=== PATIENT | female | born 1990 | race Caucasian/White ===

== ENCOUNTER 2017-03-21 22:23 | Inpatient (IN) | payer OTHER ==
[2017-03-21] MEDS ORDERED: Vecuronium 10 MG VIAL ONE (22:41)
[2017-03-21] MEDS ORDERED: FOSPHENYTOIN SODIUM IVPB SCH ×2 (22:45→23:00)
[2017-03-21] MEDS ORDERED: SODIUM CHLORIDE 0.9% IVPB SCH ×2 (22:45→23:00)
[2017-03-21] MEDS ORDERED: Fentanyl 20 MCG/ML 250 ML ONE (22:47)
[2017-03-21 22:48] LABS: #Basophils 0.1 thou/uL (0.0-0.2); #Eosinphils 0.2 thou/uL (0.0-0.7); #Lymphocytes 1.9 thou/uL (1.20-3.40); #Monocytes 0.5 thou/uL (0.11-0.59); #Neutrophils 2.3 thou/uL (1.40-6.50); %Basophils 1.3 % (0.0-1.0); %Eosinophils 3.7 % (0.0-10.0); %Lymphocytes 37.7 % (21.0-51.0); %Monocytes 9.7 % (0.0-10.0); Hematocrit 35.7 % (36.0-47.0); Mean Platelet Volume 6.8 fL (7.4-10.4); White Blood Cell (WBC) Count 4.9 thou/uL (4.8-10.8)
[2017-03-21 22:55] LABS: PTT 28.6 SEC (22.9-36.1); Prothrombin Time 12.6 SEC (12.0-14.7)
[2017-03-21 23:02] LABS: Lactic Acid - Sepsis 1.5 mmol/L (0.5-2.2)
[2017-03-21 23:08] LABS: ALT (SGPT) 11 U/L (8-55); AST (SGOT) 20 U/L (5-34); Alkaline Phosphatase 54 U/L (40-150); Anion Gap 14 mmol/L (10-20); BUN (Urea Nitrogen) 13 mg/dL (7.0-18.7); Bilirubin, Total 0.4 mg/dL (0.2-1.2); CK (CPK) 151 U/L (29-168); Calc. Creatinine Clearance 0 mL/min (70-130); Calcium 8.9 mg/dL (7.8-10.44); Carbon Dioxide 22 mmol/L (22-29); Chloride 105 mmol/L (98-107); Estimated GFR-MDRD 86; Globulin 3.5 g/dL (2.4-3.5); Lipase 31 U/L (8-78); Protein, Total 7.3 g/dL (6.0-8.3)
[2017-03-21] MEDS ORDERED: Lorazepam 2 MG/ML VIAL ONE (23:08)
[2017-03-21 23:15] LABS: Bilirubin Negative (Negative); Blood, Urine Negative (Negative); Glucose, Urine (Dipstick) Negative (Negative); Ketone, Urine Trace mg/dL (Negative); Nitrite Negative (Negative); Protein, Urine (Dipstick) Negative (Neg-Trace)
[2017-03-21 23:16] LABS: Troponin I Less than 0.010 ng/mL (< 0.028)
[2017-03-21 23:19] LABS: Oxyhemoglobin 96.9 % (94.0-97.0); Sodium 140 mmol/L (135-148)
[2017-03-21 23:24] LABS: Acetaminophen Less than 6.0 mcg/mL (10.0-30.0); Salicylate Less than 8.0 mg/dL (15.0-30.0)
[2017-03-21 23:25] LABS: Amphetamine Not Detected (NotDetected); Methadone Not Detected (NotDetected); Methamphetamine Not Detected (NotDetected)
[2017-03-21 23:28] LABS: Modified Allen's Test POSITIVE; Vent YES
[2017-03-21 23:29] LABS: Mechanical Tidal Volume 400 ml; Mode VC
--- NOTE | 2017-03-21 23:34 | CT ---
CT BRAIN NONCONTRAST: DATE: 03-21-17 TIME: 11:06 p.m. HISTORY: 26-year-old female with altered mental status, loss of consciousness, status post CPR. FINDINGS: There is no midline shift or any other mass effect. There is no evidence of acute intracranial hemor rhage, large cortical infarct, obstructive hydrocephalus, or extraaxial fluid collection. The calvar ium is intact. Symmetrical calcifications involving globi pallida of the bilateral basal ganglia, are again noted. Again noted is the prosthetic left globe. There is no interval change overall compared to 03-23-15. IMPRESSION: 1. No acute intracranial findings. 2. Prosthetic left globe. 3. Globus pallidus basal ganglia calcifications. marek POS: JADEN
--- NOTE | 2017-03-21 23:52 | RAD ---
RADIOGRAPH CHEST 1 VIEW: Date: 03-21-17 Time: 10:55 p.m. HISTORY: 26-year-old female status cardiac arrest. Status post cardiopulmonary resuscitation. COMPARISON: 03-25-15 FINDINGS: There is an endotracheal tube with distal tip overlying the mid thoracic trachea and NG tube coursing through the expected location of the stomach, very similar to the findings on the study performed tw o years ago. Cardiomediastinal silhouette is within normal limits. This is a supine image, which woul d be insensitive for pneumothorax detection. No grossly displaced rib fracture identified. The right lung is clear. Faint, minimal small ill-defined densities in the left mid and lower lung zones, are t he only interval change since the prior study. These are nonspecific. IMPRESSION: 1. Status post intubation with endotracheal tube and nasogastric tube placement. 2. Minimal pulmonary densities in the left lung. 3. The rest of the lungs are clear. DAVID POS: JADEN
[2017-03-22] MEDS ORDERED: DISCONTINUE PREVIOUS NARCOTIC PAIN MEDICATIONS AND BENZODIAZEPINES FS SCH (00:42)
[2017-03-22] MEDS ORDERED: Propofol 1,000 MG/100 ML VIAL IV PRN (00:42)
[2017-03-22] MEDS ORDERED: Fentanyl 20 MCG/ML 250 ML IVPB SCH (00:42)
[2017-03-22] MEDS ORDERED: D5 1/2 NS w/20 mEq KCL 1,000 ML IV SCH (00:45)
[2017-03-22] MEDS ORDERED: CCU Electrolyte Replacement 1 EACH FS SCH (00:49)
[2017-03-22] MEDS ORDERED: Acetaminophen 650 MG Suppository PR PRN (00:49)
[2017-03-22] MEDS ORDERED: Sedation Protocol FS SCH (00:49)
[2017-03-22] MEDS ORDERED: Ondansetron HCl/PF 4 MG/2 ML Vial IVP PRN (00:49)
[2017-03-22] MEDS ORDERED: Potassium Phosphate 9 MMOL in Sodium Chloride 0.9% 100 ML IVPB PRN (01:06)
[2017-03-22] MEDS ORDERED: Potassium Chloride 40 MEQ in Premix Bag 1 BAG IVPB PRN (01:06)
[2017-03-22] MEDS ORDERED: Potassium Chloride 40 MEQ in Sodium Chloride 0.9% 250 ML 250 ML IVPB PRN (01:06)
[2017-03-22] MEDS ORDERED: Potassium Chloride 20 MEQ TAB PO PRN (01:06)
[2017-03-22] MEDS ORDERED: Magnesium 2 GM/NS 0.9% 100 ML 2 GM in Premix Bag 1 BAG IVPB PRN (01:06)
[2017-03-22] MEDS ORDERED: Potassium Phosphate 12 MMOL in Sodium Chloride 0.9% 250 ML 250 ML IV PRN (01:06)
[2017-03-22] MEDS ORDERED: CCU ELECTROLYTE REPLACEMENT PROTOCOL FS PRN (01:06)
[2017-03-22] MEDS ORDERED: Magnesium Oxide 400 MG TAB PO PRN ×2 (01:06)
[2017-03-22] MEDS ORDERED: Potassium Phosphate 15 MMOL in Sodium Chloride 0.9% 250 ML 250 ML IV PRN (01:06)
[2017-03-22] MEDS: Sodium Chloride 0.9% 1,000 ML IV SCH ×3 (01:29→21:34)
[2017-03-22] MEDS ORDERED: SODIUM CHLORIDE 0.9% IVPB SCH ×3 (01:30→21:00)
[2017-03-22] MEDS ORDERED: HYDROCORTISONE SOD SUCC IVPB SCH ×3 (01:30→21:00)
[2017-03-22 02:03] LABS: Magnesium 1.7 mg/dL (1.6-2.6)
[2017-03-22 02:09] LABS: Troponin I Less than 0.010 ng/mL (< 0.028)
[2017-03-22 05:18] LABS: #Eosinphils 0.1 thou/uL (0.0-0.7); #Lymphocytes 0.8 thou/uL (1.20-3.40); #Monocytes 0.2 thou/uL (0.11-0.59); #Neutrophils 4.8 thou/uL (1.40-6.50); %Basophils 0.5 % (0.0-1.0); %Eosinophils 1.1 % (0.0-10.0); %Lymphocytes 13.2 % (21.0-51.0); %Monocytes 3.1 % (0.0-10.0); Hematocrit 33.5 % (36.0-47.0); Mean Platelet Volume 6.9 fL (7.4-10.4); Red Blood Cell (RBC) Count 3.89 mill/uL (4.20-5.40); White Blood Cell (WBC) Count 5.9 thou/uL (4.8-10.8)
[2017-03-22 05:30] LABS: Anion Gap 10 mmol/L (10-20); BUN (Urea Nitrogen) 10 mg/dL (7.0-18.7); Calc. Creatinine Clearance 108 mL/min (70-130); Calcium 8.3 mg/dL (7.8-10.44); Carbon Dioxide 25 mmol/L (22-29); Chloride 107 mmol/L (98-107); Estimated GFR-MDRD Greater than 90
[2017-03-22 05:36] LABS: Troponin I Less than 0.010 ng/mL (< 0.028)
--- NOTE | 2017-03-22 05:59 | ADD-ER ---
ER ADDENDUM: DATE OF SERVICE: 03/21/2017 Please refer to the patient's electronic medical record for further details of her visit. In summary, the patient presented with altered mental status. She apparently was at home and became progressively obtunded over the course of 30 minutes to 1 hour. This occurred shortly after taking h er daily medications. However, her family does not suspect overdose as they carefully monitor her me dication intake and have counted her medications and have found the appropriate number of medications left in her pillbox. On arrival, the patient was obtunded and unresponsive to painful stimulus. She demonstrated upper ex tremity tonic-clonic movements, concerning for seizure activity. This resolved spontaneously after 3 0 seconds to 1 minute. She continued to breathe spontaneously, and maintained her oxygen saturation without hypoxia at any point. Following several minutes, the patient again began tonic-clonic movements of the upper extremities. This episode was briefer than the initial episode, and resolved just prior to Ativan administration. She had another 1-2 further similar episodes, the decision was made to intubate the patient for airw ay protection. At no point where she hypoxic or did she respond to painful or verbal stimulus at any time. She did remain hemodynamically stable throughout her ER stay. Including during intubation attempt, s he did not become hypoxic at any time. Breath sounds were clear bilaterally before and after intubat ion attempt. Intubation was accomplished with a single attempt without any complication. The patien t did not vomit, there is no evidence of aspiration during their intubation attempt. Findings do not reveal significant underlying cause of her new onset seizure activity. She has not b een recently ill according to her family, and there are no significant metabolic or electrolyte deran gements noted on evaluation. Her CT of the brain is unremarkable. I discussed the case with the [facility] Medicine Resident button and buckle maker, who agreed with plan for admission to the ICU. I also discussed the c ase with Dr. Arauz of the Neurology Service, who recommends ongoing care with Sj. It should be noted, shortly after Ativan administration, the patient was also loaded with fosphenytoin. Sedation was maintained per protocol. The patient is unstable with guarded condition at the time of admission to the ICU. The family was updated with the findings and plans for admission. All other questions were answered.
[2017-03-22] MEDS ORDERED: Fosphenytoin Sodium 100 MG in Sodium Chloride 0.9% 50 ML IVPB SCH (06:00)
[2017-03-22] MEDS ORDERED: Fosphenytoin Sodium 100 MG in Sodium Chloride 0.9% 100 ML IVPB SCH ×2 (06:30→14:00)
--- NOTE | 2017-03-22 07:28 | HP-2 ---
ADMISSION DATE: 03/22/2017 ADMITTING RESIDENT: Emerson Yin DO ADMITTING ATTENDING: Neel Crooks MD HISTORIAN: Mother and boyfriend. CHIEF COMPLAINT: Seizures, status post cardiopulmonary resuscitation. HISTORY OF PRESENT ILLNESS: This is a 26-year-old female who presents to the emergency departm ent after becoming unresponsive at approximately 2140 last night. Her boyfriend states she woke up t o put the child back to sleep and she reported she did not feel well. She had slurred speech, her ey es rolled back pain, and she became unresponsive. He called 911 and they advised that he start chest compressions. He did chest compressions until EMS arrived. EMS found pulse on arrival and per ER r ecords reported she became more alert and started to withdraw from pain. In the emergency department , she was seen by Dr. Sherwood and she started seizing, she was given Ativan and Dilantin and intubat ed. Per her boyfriend and mother, she had been in her normal state of health recently; however, she has a complex medical history including history of pulmonary embolism, history of lupus as well as PT SD and anxiety. Mother states she has multiple psychiatric problems which seem to be worsening latel y. As noted above in the emergency department, she was seen by Dr. Sherwood. Medications received i n the ER include Ativan 2 mg, fosphenytoin 15 mg/kg , 1 liter of normal saline, etomidate and vecuron ium. PAST MEDICAL HISTORY: 1. Systemic lupus erythematosus. 2. Congenital microphthalmia of the left eye. 3. History of pulmonary embolism in 2014. 4. Questionable history of myocarditis in 2014. 5. Hepatitis B in childhood. 6. PTSD. 7. Anxiety. PAST SURGICAL HISTORY: Includes . ALLERGIES: 1. PENICILLIN. 2. NICKEL. 3. TOMATO. HOME MEDICATIONS: Based on list provided by mother and confirmed by the ER nursing staff includes: 1. Hydroxyzine 10 mg 2 tabs q.a.m., 2 tabs midday, and 5 tabs at night. 2. Hydroxychloroquine 300 mg oral once daily. 3. Coreg 3.125 mg p.o. b.i.d. 4. Ranitidine 150 mg p.o. b.i.d. 5. Montelukast 10 mg 2 tabs p.o. b.i.d. 6. Venlafaxine 75 mg p.o. daily. 7. Calcium plus D 600 mg/200 units 1 tab p.o. daily. 8. Vitamin D3 of 2000 units 1 tab p.o. daily. 9. Gabapentin 300 mg p.o. t.i.d. 1 tab in the morning, 2 at noon, and 4 at bedtime. 10. Prazosin 1 mg p.o. daily. 11. Trazodone 50 mg p.o. at bedtime as needed. FAMILY HISTORY: Unknown. The patient is adopted. SOCIAL HISTORY: Patient smokes, mother does not know how much. No alcohol or drug use reported. Anthony renteria has one child. REVIEW OF SYSTEMS: Limited due to patient's altered and now intubated status; however, her boyfriend states she has been in normal state of health and has had no complaints of fevers, chills, runny nos e, stuffed up nose, sore throat, abdominal pain, nausea, vomiting, diarrhea. Mother does note that s he seems to have increased picking behavior recently and that she seems to have more lesions on her s kin per mother. PHYSICAL EXAMINATION: VITAL SIGNS: In the emergency department, blood pressure 111/70, pulse 69, respiratory rate 16, T-ma x 97.5, pulse ox 100% on ventilator. Weight 59.4 kilograms. GENERAL: Patient is well-developed. She is intubated. EYES: Conjunctivae within normal limits. Left eye prosthesis. ENT: Tympanic membranes pearly romano without bulging or erythema. Nasal mucosa within normal limits. Patient is intubated. NECK: Supple, with no lymphadenopathy, thyromegaly, or bruit. CARDIOVASCULAR: Regular rate and rhythm. No murmurs, rubs, or gallops. Radial and pedal pulses are palpable and equal bilaterally. RESPIRATORY: Normal effort. No retractions. Clear to auscultation bilaterally. SKIN: Warm and dry with no cyanosis or lesions. ABDOMEN: Soft. Bowel sounds positive x4. No masses or distention. EXTREMITIES: No clubbing, cyanosis, or edema. MUSCULOSKELETAL: Structure within normal limits. Tone within normal limits. Muscle strength 5/5. Full range of motion. GCS is currently 3 due to patient being intubated and sedated. LABORATORY DATA: 1. CBC: White blood cell count 4.9, hemoglobin 11.8, hematocrit 35.7, platelets 242, MCV 84. 2. CMP: Sodium 138, potassium 3.4, chloride 105, bicarbonate 22, BUN 13, creatinine 0.81, glucose 1 13, calcium 8.9, total protein 7.3, albumin 3.8, AST 20, ALT 11, alkaline phosphatase 54, total bilir ubin 0.4. 3. Urinalysis: Specific gravity 1.026, blood negative, protein negative, leukocyte esterase negativ e, nitrite negative, ketone trace, glucose negative, and negative for red blood cells, white blood ce lls and bacteria. 4. AB.47/30/686. 5. Urine drug screen negative for all drugs of abuse. Serum drug screen negative for salicylate and acetaminophen. 6. Serum test negative. 7. Cardiac enzymes: CK-MB 1.2, troponin I less than 0.010. 8. CK 151. 9. Lactic acid 1.5. 10. Prolactin 7.32. 11. Coags: PT 12.6, INR 0.9, PTT 28.6. 12. EKG shows normal sinus rhythm, no ischemic changes. QT is slightly prolonged. 13. Chest x-ray shows mild pulmonary densities in left lower lobe, otherwise normal. 14. Brain CT shows no acute findings. Prosthetic left globe is present. ASSESSMENT AND PLAN: This is a 26-year-old -female who presents with: 1. Altered mental status likely secondary to new onset seizures. Admit to ICU. MRI has been ordere d. 2. Consult Pulmonology, Neurology consultation in ED, consistent with some involvement of P[place]CEL[place] WAXER. Cont inue Dilantin. Based on patient's psychiatric history, there is also a possible psychiatric componen t, however, organic causes need to be ruled out at this time. 3. Lupus concern for neurologic involvement. Steroids started. Patient's mold yarn supervisor of Dr. Rafat juarez, restart home meds when taking p.o. 4. History of pulmonary embolism in light of patient's history of pulmonary embolism and unresponsiv eness, today we will get a CT angio of the chest. 5. Hypokalemia, CCU electrolyte protocol ordered. 6. Normocytic anemia, mild. We will trend. 7. Post-traumatic stress disorder, outpatient followup. 8. Anxiety. Home medications when taking p.o. 9. Code status: FULL. 10. Diet: N.p.o. 11. Activity: Bed rest. 12. Deep venous thrombosis prophylaxis: Lovenox. 13. Gastrointestinal prophylaxis: Famotidine. DISPOSITION AND LENGTH OF STAY: Two days. Symptomatic medications will be provided. History and physical exam as well as management were discussed with Dr. Crooks.
[2017-03-22] MEDS ORDERED: methylPREDNISolone Sod Succ/PF 125 MG/2 ML VIAL IVP SCH (09:00)
--- NOTE | 2017-03-22 09:14 | CT ---
PRELIMINARY REPORT/[facility]/EMERGENCY AFTER HOURS PROCEDURE: EXAM: CT Angiography Chest With Intravenous Contrast CLINICAL HISTORY: 26 years old, female; Signs and symptoms; Other: Unresposive; Patient HX: Ccu a4; Status post cpr. P mh of pulmonary emboli ; 26 y/o f with presentation of S/P cpr. Ems reports that family initiated cpr , which was stopped when ems arrived. There are concerns for possible od TECHNIQUE: Axial computed tomographic angiography images of the chest with intravenous contrast using pulmonary embolism protocol. MIP reconstructed images were created and reviewed. CONTRAST: 70 mL of ISOVUE 370 administered intravenously. COMPARISON: No relevant prior studies available. FINDINGS: Pulmonary arteries: No pulmonary embolism. Aorta: No acute findings. Lungs: Minimal posterior dependent atelectasis. Pleural space: Normal. No significant effusion. No pneumothorax. Heart: Normal. Bones/joints: No acute fracture. No dislocation. Soft tissues: Normal. Lymph nodes: Normal. Tubes, lines and devices: Enteric tube tip within the gastric body lumen. Endotracheal tube tip in mi dthoracic trachea. IMPRESSION: 1. No pulmonary embolism. 2. No acute thoracic abnormality. 3. Support equipment as above. No acute complications. Thank you for allowing us to participate in the care of your patient. Dictated and Authenticated by: Adonis Lala MD 03/22/2017 3:28 AM Central Time ([place] & [place]) FINAL REPORT CT ANGIOGRAM CHEST: Date: 03/22/17 COMPARISON: 03/24/15. HISTORY: Status post CPR. Post medical history of pulmonary emboli. TECHNIQUE: CT angiogram of chest is performed in the axial plane. Oblique and coronal three-dimensional reformat narciso images are submitted for interpretation. FINDINGS: This report is in agreement with the preliminary report by Shanel. No evidence of pulmonary artery embo lism to the level of the segmental arteries. POS: PPP
[2017-03-22 09:28] LABS: PTT 29.7 SEC (22.9-36.1); Prothrombin Time 13.6 SEC (12.0-14.7)
[2017-03-22] MEDS: Lorazepam 2 MG/ML VIAL SLOW IVP PRN ×2 (10:39→21:42)
[2017-03-22] MEDS ORDERED: Rocuronium Bromide 50 MG/5 ML VIAL ONE (10:44)
[2017-03-22] MEDS ORDERED: Diprivan 20 ML ONE (11:01)
[2017-03-22] MEDS: Enoxaparin Sodium 40 MG/0.4 ML SYRINGE SC SCH (12:18)
[2017-03-22] MEDS: Famotidine/PF 20 mg/2ml Vial SLOW IVP SCH ×2 (12:19→21:42)
--- NOTE | 2017-03-22 16:02 | MRI ---
MRI BRAIN WITH AND WITHOUT IV CONTRAST: Date: 03/22/17 HISTORY: Seizures, mental status changes, history of lupus. FINDINGS: No evidence of infarct, hemorrhage, mass, midline shift, or abnormal extra-axial fluid collections ar e seen. The ventricular size is normal and the basilar cisterns are patent. No abnormal postcontrast enhancement is seen. No restricted diffusion is noted. Blooming artifact in the basal ganglia on the gradient echo sequences is consistent with calcifications noted on the CT scan of previous day. The v isualized paranasal sinuses and mastoid air cells are well aerated. IMPRESSION: Normal exam. POS: [facility]
[2017-03-22] MEDS ORDERED: ISOVUE-370 76%-LOCM 1 ML ONE (16:58)
[2017-03-22] MEDS ORDERED: Gadobenate Dimeglumine 529 MG/1 ML (20ML VIAL) ONE (17:11)
--- NOTE | 2017-03-22 23:29 | CON ---
DATE OF CONSULTATION: 03/22/2017 REASON FOR CONSLTATION: Seizure. HISTORY OF PRESENT ILLNESS: Ms. Pa is a 26-year-old female who has been consulted for evaluatio n of seizure. History is obtained from her father who was present at bedside as well as the patient' s medical chart. Father reports that she has been adopted at 3-1/2 years of age. She has no prior h istory of seizure disorder. She has been diagnosed with lupus about 2 years ago and has been undergo ing treatment. She had not been feeling well on yesterday. She had gotten up to put her child back to sleep and it was reported that she was not feeling well. She had slurred speech and then her eyes rolled back and she passed out. Her boyfriend who was present at that time called 911 and started t he chest compressions as per their advice. EMS had brought the patient to the [facility]. In the emergency room, she was noted to be having seizure-like activity that was witnessed by Edmund Sherwood. At that time, she was given Ativan and Dilantin and intubated for airway protection. C urrently, she is intubated and somewhat agitated. She is not able to follow any commands. PAST MEDICAL HISTORY: Significant for lupus congenital microphthalmia of the left eye, pulmonary emb olism in 2014, myocarditis in 2014, hepatitis B in childhood, PTSD, and anxiety. PAST SURGICAL HISTORY: Significant for . SOCIAL HISTORY: The patient does have a history of smoking. She does not drink any alcohol or use i llicit drugs. She has 1 child. CURRENT MEDICATIONS: Please review MAR. ALLERGIES: Include PENICILLIN, NICKEL and TOMATO. REVIEW OF SYSTEMS: Unable to obtain. FAMILY HISTORY: Unknown as the patient is adopted. PHYSICAL EXAMINATION: VITAL SIGNS: Blood pressure of 100/61, pulse of 64, temperature of 98.4, respirations of 16, O2 sats of 99% on mechanical ventilation. GENERAL: Intubated female, somewhat agitated, in no apparent distress. RESPIRATORY: Clear to auscultation bilaterally. CARDIOVASCULAR: Regular rate and rhythm. NEUROLOGIC: Mental status: The patient is intubated and somewhat agitated. She is not able to foll ow any commands. Cranial nerves: Pupils are 3 mm and reactive. Visual field test, unable to perfor m. She opens her eyes on the right side and unable to move in both direction. She has artificial le ns in the left eye. Motor exam showed normal tone and bulk in both upper and lower extremities. She is spontaneously moving both upper and lower extremities and she is on 2-point restraint. LABORATORY DATA: Labs are reviewed, which included CBC, BMP, urinalysis, urine drug screen, and plas ma alcohol level, which is significant for hemoglobin 10.9, hematocrit 33.5, glucose of 124. Otherwi se, negative. IMAGING STUDIES: MRI brain without contrast was reviewed, which showed no acute intracranial abnorma lity. It was essentially normal. IMPRESSION: 1. Generalized tonic-clonic seizure. 2. Lupus. Ms. Pa is a 26-year-old female with history of lupus, presented with a new onset generalized ton ic clonic seizures. At this time, I would discontinue Dilantin and start her on Keppra 500 mg IV b.i .d. I will obtain EEG for further evaluation, being off the ventilator as per senior it recruiter recommenda tions, continue supportive care. Continue current medical management. Thank you for your consultation.
--- NOTE | 2017-03-23 00:01 | CON ---
DATE OF CONSULTATION: 03/22/2017 HISTORY OF PRESENT ILLNESS: Ms. Pa is a 26-year-old female. History is taken from her father. She is mechanically ventilated. She apparently woke up stating she was not feeling well. She passe d out. He began CPR until the EMS arrived. She had a pulse apparently when they arrived. She apparently had a witnessed seizure according to the mother after an airway was placed. I was then consulted to assist in her management. PAST MEDICAL HISTORY: Remarkable for, 1. Pulmonary embolism. 2. History of lupus. 3. History of anxiety. 4. History of post-traumatic stress disorder. 5. History of congenital microphthalmia of the left eye. 6. History of myocarditis ? 7. History of hepatitis B. 8. History of . ALLERGIES: Reports allergy to PENICILLIN, NICKEL, and TOMATO. MEDICATIONS: Prior to admission she was on hydroxyzine; hydroxychloroquine; Coreg; ranitidine; Singu lair; venlafaxine; calcium; vitamin D3; gabapentin; prazosin which was [facility]; and trazodone. She is apparently a smoker. She is not a drinker. She has one child. Family sees her once a week w hen they come over with the child. FAMILY HISTORY: She is adopted. REVIEW OF SYSTEMS: Only remarkable for her having nightmares and insomnia because of nightmares for about a month and a half prior to seeing her physician and having the prazosin started. She has a ps ychiatrist and her elevator service technician is Dr. Lowry. Review of systems is otherwise not obtainable. PHYSICAL EXAMINATION: VITAL SIGNS: Heart rate 67, blood pressure 96/52, respiratory rate is 10. HEENT: Pupils are equal. Sclerae are anicteric. LUNGS: Clear. HEART: Regular rhythm. S1 and S2 are normal. ABDOMEN: Soft and nontender. EXTREMITIES: Without asymmetry. LABORATORY DATA: White count 5.9, hemoglobin 10.9, platelets 234. Sodium 138, potassium 4.1, chlori de 107, bicarbonate 25, BUN 10, creatinine 0.75, glucose 124. A pH 7.47, pCO2 was 30, pO2 was 686 on 100% last night at 2313 hours. She was sedated and paralyzed for an MRI today. Her MRI of her brain was normal. IMPRESSION: ? seizure. Conversion disorder is always in the differential, in this case such as this was explained to the father. It was in my opinion the correct move to intubate her if there is any uncertainty. Hopefully, we can let her awaken in the morning and extubate her. Critical care time 40 minutes including the time meeting with family.
[2017-03-23] MEDS: Lorazepam 2 MG/ML VIAL SLOW IVP PRN (05:17)
[2017-03-23] MEDS: Sodium Chloride 0.9% 1,000 ML IV SCH ×2 (05:18→12:45)
--- NOTE | 2017-03-23 07:45 | PDOC.FM ---
- Subjective Subjective: Patient remains intubated, with possible extubation today according to RT. Nursing stated that she was agitated last night and propofol was started. Otherwise, there was no concern or overnight event. - Objective MAR Reviewed: Yes Vital Signs & Weight: Vital Signs (12 hours) Temp Pulse Resp BP Pulse Ox 03/23/17 07:12 81 99/53 L 03/23/17 06:00 16 03/23/17 04:00 98.8 F 10 L 03/23/17 03:12 83 03/23/17 02:00 10 L 03/23/17 01:18 75 03/23/17 00:00 98.9 F 10 L 03/22/17 22:00 10 L 03/22/17 21:46 81 03/22/17 20:00 98.8 F 70 10 L 97 Weight Admit Weight 59.421 kg Weight 63.8 kg Most Recent Monitor Data Heart Rate from ECG 84 NIBP 99/54 NIBP BP-Mean 71 Respiration from ECG 18 SpO2 95 I&O: 03/22/17 03/23/17 03/24/17 06:59 06:59 06:59 Intake Total 2606.0 Output Total 650 1055 Balance -650 1551.0 Result Diagrams: 03/22/17 05:03 03/22/17 05:03 <Arnel Salazar M - Last Filed: 03/23/17 11:27> - Objective Vital Signs & Weight: Vital Signs (12 hours) Temp Pulse Resp BP Pulse Ox 03/23/17 09:15 97 03/23/17 08:45 12 03/23/17 08:00 98.5 F 80 12 100 03/23/17 07:12 81 99/53 L 03/23/17 06:00 16 03/23/17 04:00 98.8 F 10 L 03/23/17 03:12 83 03/23/17 02:00 10 L 03/23/17 01:18 75 Weight Admit Weight 59.421 kg Weight 63.8 kg Most Recent Monitor Data Heart Rate from ECG 98 NIBP 119/79 NIBP BP-Mean 94 Respiration from ECG 23 SpO2 100 I&O: 03/22/17 03/23/17 03/24/17 06:59 06:59 06:59 Intake Total 2606.0 Output Total 650 1055 430 Balance -650 1551.0 -430 Result Diagrams: 03/22/17 05:03 03/22/17 05:03 <eTn Lopez R - Last Filed: 03/23/17 12:42> Phys Exam - Physical Examination Constitutional: NAD HEENT: moist MMs Neck: no nodes, supple Respiratory: no wheezing, no rales, no rhonchi, clear to auscultation bilateral Cardiovascular: RRR Gastrointestinal: soft, non-tender, no distention Musculoskeletal: no edema Intubated, no increased tone, right eye reactive to light, spontaneous move but not to command. Skin: no rash <Ly,Arnel M - Last Filed: 03/23/17 11:27> Dx/Plan (1) New onset seizure Code(s): R56.9 - UNSPECIFIED CONVULSIONS Status: Acute Plan: 03/23: Patient remains intubated for airway protection. Per pulm note, she may be extubated today. She is doing well on vent, can become agitated and had propofol yesterday for agitation. Neurology advised that she be started on keppra 500 mg BID. There has no been any witnessed seizure since admission. (2) Systemic lupus erythematosus-related syndrome Code(s): M32.9 - SYSTEMIC LUPUS ERYTHEMATOSUS, UNSPECIFIED Status: Chronic Plan: 03/23: This may play a part in her symptom. However, MRI, brain CT did not suggest cerebritis, stroke or other abnormalities that could have led to her current state or her sudden declined prior to admission. Will continue to await phospholipid lab, but current rheumatological labs are benign at this time. Will restart hydroxychloroquine when she can tolerate PO. (3) Normocytic anemia Code(s): D64.9 - ANEMIA, UNSPECIFIED Status: Acute Plan: 03/23: Normocytic anemia noted on lab. Plan to inform patient nearer to discharge time for follow up as outpatient. Mild anemia. (4) History of pulmonary embolism Code(s): Z86.711 - PERSONAL HISTORY OF PULMONARY EMBOLISM Status: Acute Plan: 03/23: CTA did not find any PE. O2 saturation has been good during this visit. (5) Anxiety and depression Code(s): F41.8 - OTHER SPECIFIED ANXIETY DISORDERS Status: Acute Plan: 03/23: Will restart patient on her venlafaxine once she can tolerate PO. <Ly,Arnel M - Last Filed: 03/23/17 11:27> Attending Addendum - Attending Addendum I personally evaluated the patient and discussed the management with Dr. Salazar. I agree with the History, Examination, Assessment and Plan documented above with any addition or exceptions noted below. Patient with successful extubation earlier today. No seizure activity, but she continues on Keppra therapy. Will need speech consult to ensure no swallowing disturbance. Continue seizure precautions. Her MRI was overall negative for acute issues, less likely infection or lupus involvement responsible. Await EEG and further neuro recs. Continues on pulse dose steroids. <Ten Lopez R - Last Filed: 03/23/17 12:42>
[2017-03-23] MEDS: Famotidine/PF 20 mg/2ml Vial SLOW IVP SCH ×2 (09:59→20:36)
[2017-03-23] MEDS: Hydroxychloroquine Sulfate 200 MG TAB PO SCH ×2 (10:00→10:21)
[2017-03-23] MEDS: Enoxaparin Sodium 40 MG/0.4 ML SYRINGE SC SCH (10:01)
[2017-03-23 10:17] LABS: U1RNP/snRNP IGG Autoabs 0.2 AI (0.0-0.9)
[2017-03-23] MEDS: Venlafaxine HCl XR 75 MG CAP PO SCH (10:22)
[2017-03-23] MEDS ORDERED: Sodium Chloride 0.9% 500 ML IV SCH (11:45)
[2017-03-23] MEDS ORDERED: hydrOXYzine 10 MG TAB PO SCH (12:00)
[2017-03-23] MEDS: Gabapentin 300 MG CAP PO SCH (12:24)
[2017-03-23] MEDS: hydrOXYzine 25 MG/ML VIAL IM SCH (12:25)
--- NOTE | 2017-03-23 12:36 | PRG ---
DATE OF SERVICE: 03/23/2017 Ms. Pa was given a sedation holiday this morning. She will awaken and follow commands. PHYSICAL EXAMINATION: VITAL SIGNS: She is afebrile. Heart rate was 98, blood pressure 105/42, respiratory rate 15. She passed a spontaneous breathing trial. She passed a leak test. LUNGS: Her lungs are clear. CARDIOVASCULAR: Regular rhythm. ABDOMEN: Soft and nontender. EXTREMITIES: Without asymmetry. NEURO: She had no witnessed seizures in the last 24 hours. White count 5.9, hemoglobin 10.9, platelets 334,000. Sodium 130, potassium 4.1, chloride 107, bicarbonate 25, BUN 10, creatinine 0.75. She subsequently has been extubated. She was reevaluate and is complaining of pruritus. I would wonder how much of the pruritus is relate d to her posttraumatic stress disorder, i.e. conversion/somatization. Neurology recommended Davidra. I am concerned that this was an episode of somatization or conversion disorder and not really a true seizure. As I have explained to the father, it is impossible to separate this out clinically at this point and only time will answer this question whether history of bad nightmares for the last month a nd a half with the recent initiation of Prazosin for her nightmares would wonder if this was not anot her manifestation of her posttraumatic stress. In any event, she has been successfully extubated and doing well clinically. She can be transferred over to the stroke unit if she has a good day. CRITICAL CARE TIME: 35 minutes.
--- NOTE | 2017-03-23 16:43 | PRG ---
DATE OF SERVICE: 03/23/2017 SUBJECTIVE: Ms. Pa is a 26-year-old female who presented with the generalized tonic clonic seiz ure. She is now extubated today just 1-2 hours before my examination. Mother was at bedside who pro vided more detailed history. Apparently, the patient has had multiple traumas throughout her life. She has been adopted at 3-1/2 years of age from [place]. She had presented in 2014 with episode of passing out and at that time, she was being seen by Dr. Rowdy Berrios, who felt that the episode may h ave been an underlying condition or medication induced. She was not started on any antiepileptic med ication at that time. Mother reports that she has been undergoing psychiatric management and has bee n prescribed different antidepressant type medications to control her anxiety and depression. She colon d passed out and brought to the [facility] after which she was noted to have 2 episode s of generalized tonic-clonic convulsions. She has not had any episode of seizures since being admit narciso to the ICU. OBJECTIVE: VITAL SIGNS: Blood pressure of 94/80, pulse of 111, temperature of 99.1, respirations of 23 on 2 lit er nasal cannula. GENERAL: Obtunded female in no apparent distress. RESPIRATORY: Clear to auscultation bilaterally. CARDIOVASCULAR: Regular rate and rhythm. NEUROLOGIC: Mental status: The patient is obtunded. She is able to follow some simple commands, bu t primarily is not able to follow through. She is nonverbal and does not communicate. Cranial nerve s: Pupils are 3 mm and reactive on the right side. She has prosthesis on the left side. Face appea rs symmetric. Motor exam showed somewhat increased tone of the both upper extremities as well as a s pastic catch in both upper extremities. Her strength is 5/5 on hand snow fence erector on both sides. Sensory: S he withdraws to pain on both upper and lower extremities. Deep tendon reflexes: Very brisk reflexes in both upper and lower extremities. Babinski: Plantar responses equivocal bilaterally. IMAGING STUDIES: MRI brain without contrast was reviewed, which showed no acute intracranial abnorma lity was essentially normal. Normal MRI brain with and without contrast. IMPRESSION: 1. Generalized tonic-clonic seizure. 2. History of lupus. 3. Depression and anxiety. PLAN: Ms. Pa is a 26-year-old female who presented with the episode of confusion followed by ge neralized tonic clonic convulsions. At this time, I would recommend continuing her on Keppra 500 mg b.i.d. I had a long discussion with the patient's mother and explained that we will continue on the Keppra for now. If she continues to have episodes of seizures, then the Keppra can be maximized to 1 500 mg b.i.d. If she still has seizures, then we can add another antiepileptic medication or refer h er to epileptic monitoring unit for evaluation whether these are nonepileptic or epileptic seizures. She will follow up with my clinic in 4-6 weeks post-discharge. I have advised the mother that she i s to have seizure precautions including no driving, no operating heavy machinery, no climbing ladders or swimming.
--- NOTE | 2017-03-23 16:47 | EKG ---
Test Reason : Blood Pressure : / mmHG Vent. Rate : 087 BPM Atrial Rate : 087 BPM P-R Int : 144 ms QRS Dur : 088 ms QT Int : 366 ms P-R-T Axes : 059 072 060 degrees QTc Int : 440 ms Normal sinus rhythm with sinus arrhythmia Normal ECG Confirmed by LEISA GOMEZ ([id number]) on 03/23/2017 4:46:33 PM Referred By: LORI Confirmed By:LEISA GOMEZ
[2017-03-23] MEDS: Gabapentin 400 MG CAP PO SCH (20:37)
[2017-03-23] MEDS ORDERED: hydrOXYzine 25 MG/ML VIAL IM SCH (21:00)
[2017-03-23] MEDS ORDERED: hydrOXYzine 25 MG TAB PO SCH (21:00)
--- NOTE | 2017-03-24 07:59 | PDOC.FM ---
- Subjective Subjective: According to nursing, no overnight incidence. Patient has been sleeping but can but aroused. She can open eye and move to command, but otherwise sleeps. - Objective MAR Reviewed: Yes Vital Signs & Weight: Vital Signs (12 hours) Temp Pulse Resp Pulse Ox 03/23/17 20:00 98.5 F 83 13 100 Weight Admit Weight 59.421 kg Weight 63.8 kg Most Recent Monitor Data Heart Rate from ECG 68 NIBP 97/59 NIBP BP-Mean 78 Respiration from ECG 14 SpO2 98 I&O: 03/23/17 03/24/17 03/25/17 06:59 06:59 06:59 Intake Total 2606.0 2379 Output Total 1055 3065 Balance 1551.0 -686 Result Diagrams: 03/22/17 05:03 03/22/17 05:03 <Arnel Salazar M - Last Filed: 03/24/17 10:46> - Objective Vital Signs & Weight: Vital Signs (12 hours) Temp Pulse Resp Pulse Ox 03/24/17 12:00 98.4 F 03/24/17 08:00 98.7 F 63 17 97 Weight Admit Weight 59.421 kg Weight 63.8 kg Most Recent Monitor Data Heart Rate from ECG 62 NIBP 118/64 NIBP BP-Mean 81 Respiration from ECG 17 SpO2 98 I&O: 03/23/17 03/24/17 03/25/17 06:59 06:59 06:59 Intake Total 2606.0 2379 200 Output Total 1055 3065 765 Balance 1551.0 -686 -565 Result Diagrams: 03/22/17 05:03 03/22/17 05:03 <Julio Obrien - Last Filed: 03/24/17 12:16> Phys Exam - Physical Examination Constitutional: NAD HEENT: moist MMs Neck: no nodes Respiratory: no wheezing, no rales, no rhonchi, clear to auscultation bilateral Cardiovascular: RRR, no significant murmur, no rub Gastrointestinal: soft, non-tender, no distention, positive bowel sounds Musculoskeletal: no edema <Arnel Salazar M - Last Filed: 03/24/17 10:46> Dx/Plan (1) New onset seizure Code(s): R56.9 - UNSPECIFIED CONVULSIONS Status: Acute Plan: 03/23: Patient remains intubated for airway protection. Per pulm note, she may be extubated today. She is doing well on vent, can become agitated and had propofol yesterday for agitation. Neurology advised that she be started on keppra 500 mg BID. There has no been any witnessed seizure since admission. 03/24: EEG was obtained. Read has not been interpreted yet. At this point, neurology recommend that patient can follow up in outpatient clinic in 6 week and to start keppra 500 BID. From neurology standpoint, patient can be discharge from their service to home whenever she is medically cleared. Their diagnosis is new onset seizure. (2) Systemic lupus erythematosus-related syndrome Code(s): M32.9 - SYSTEMIC LUPUS ERYTHEMATOSUS, UNSPECIFIED Status: Chronic Plan: 03/23: This may play a part in her symptom. However, MRI, brain CT did not suggest cerebritis, stroke or other abnormalities that could have led to her current state or her sudden declined prior to admission. Will continue to await phospholipid lab, but current rheumatological labs are benign at this time. Will restart hydroxychloroquine when she can tolerate PO. 03/24: Double stranded DNA and positive DUC does suggest patient has lupus, phospholipid lab still pending. However, lab does not confirm or deny the cause of patient's AMS. Working diagnosis of new onset seizure at this time. (3) Normocytic anemia Code(s): D64.9 - ANEMIA, UNSPECIFIED Status: Acute Plan: 03/23: Normocytic anemia noted on lab. Plan to inform patient nearer to discharge time for follow up as outpatient. Mild anemia. 03/24: Will continue to monitor while in hospital and advise patient to followup as outpatient. (4) History of pulmonary embolism Code(s): Z86.711 - PERSONAL HISTORY OF PULMONARY EMBOLISM Status: Acute Plan: 03/23: CTA did not find any PE. O2 saturation has been good during this visit. 03/24: No evidence of PE. No further work up at this time, pending changes in clinical picture. (5) Anxiety and depression Code(s): F41.8 - OTHER SPECIFIED ANXIETY DISORDERS Status: Acute Plan: 03/23: Will restart patient on her venlafaxine once she can tolerate PO. 03/24: Will continue with current plan. (6) Prolonged Q-T interval on ECG Code(s): R94.31 - ABNORMAL ELECTROCARDIOGRAM [ECG] [EKG] Status: Acute Plan: 03/24: Patient had mildly prolong qtc interval on initial EKG, has resolved with second ekg . Consider getting new EKG if starting patient on new medication that could prolong qtc. <Arnel Salazar - Last Filed: 03/24/17 10:46> Attending Addendum - Attending Addendum I personally evaluated the patient and discussed the management with Dr. Salazar. I agree with the History, Examination, Assessment and Plan documented above with any addition or exceptions noted below. Patient passed bedside swallow eval. Meds being switched to po. EEG pending. Neuro has signed off. Rehab eval. <Julio Obrien - Last Filed: 03/24/17 12:16>
[2017-03-24] MEDS: Enoxaparin Sodium 40 MG/0.4 ML SYRINGE SC SCH (08:35)
[2017-03-24] MEDS: Sodium Chloride 0.9% 1,000 ML IV SCH ×3 (08:35→20:12)
[2017-03-24] MEDS: Famotidine/PF 20 mg/2ml Vial SLOW IVP SCH (08:36)
[2017-03-24] MEDS: hydrOXYzine 25 MG/ML VIAL IM SCH (08:50)
[2017-03-24] MEDS: Hydroxychloroquine Sulfate 200 MG TAB PO SCH (08:50)
[2017-03-24] MEDS: Gabapentin 300 MG CAP PO SCH ×2 (08:51→12:10)
[2017-03-24] MEDS: Venlafaxine HCl XR 75 MG CAP PO SCH (08:51)
[2017-03-24 12:12] VITALS: BMI 24.9
[2017-03-24 13:14] LABS: DRVVT Ratio 0.9 Ratio (1.2 or Less); DRVVT Screen 29.1 SEC (20-50)
--- NOTE | 2017-03-24 20:10 | PRG ---
DATE OF SERVICE: 03/24/2017 SUBJECTIVE: Ms. Pa has done well overnight. She has had no seizures. She is hemodynamically s table. OBJECTIVE: She is afebrile, heart rate is in the 70s, respiratory rate 16, oximetry is 97, blood pre ssure 123/71. Lungs, heart, and abdomen are unchanged. LABORATORY DATA: There is no new lab. IMPRESSION: Status post? seizure episode. She is being treated with Keppra. Still concerned that a lot of this is a conversion disorder if not all of it. Unfortunately, it is n o easy way to prove that much she is witnessed to be "seizing" with continuous EEG in place. She is stable for transfer out of the critical care. We will sign off.
[2017-03-24] MEDS: levETIRAcetam 500 MG TAB PO SCH (20:11)
[2017-03-24] MEDS: Famotidine 20 MG TAB PO SCH (20:11)
[2017-03-24] MEDS: Montelukast Sodium 10 mg Tablet PO SCH (20:11)
[2017-03-24] MEDS: Carvedilol 3.125 MG TAB PO SCH (20:11)
[2017-03-24] MEDS: hydrOXYzine 25 MG TAB PO SCH (20:50)
[2017-03-24] MEDS: Gabapentin 400 MG CAP PO SCH (20:55)
[2017-03-24] MEDS ORDERED: hydrOXYzine 10 MG TAB PO SCH (21:00)
[2017-03-24] MEDS: Prazosin HCl 1 MG CAP PO SCH (22:55)
[2017-03-24] MEDS: Lorazepam 2 MG/ML VIAL SLOW IVP PRN (22:59)
--- NOTE | 2017-03-24 23:25 | PDOC.EVN ---
Event Note - Event Note Event Note: Called to bedside after patient began having twitching movements that were concerning for seizure like activity. Patient was somnolent on exam and a few twitching episodes of her bilateral upper arms were noted. She had low tone in her arms and legs. She had 2+ DTRs. Overall event could be consistent with seizure like activity and no EEG was available. Gave 1 mg of ativan and patient shortly began to wake up and was following commands. vitals signs were normal including spo2 and RR. Will monitor for longer response to medication. Patients movements and breathing were all consistent with mental status able to protect airway, GCS of 10.
[2017-03-25 00:08] LABS: Beta-2-GPI IgM Autoabs <10 SMU (.); Beta-2-Glycoprotein IgA Abs <10 SAU (.); Beta-2-Glycoprotein IgG Abs <10 SGU (.)
[2017-03-25] MEDS: Sodium Chloride 0.9% 1,000 ML IV SCH ×2 (06:41→16:25)
[2017-03-25 08:57] LABS: Anion Gap 12 mmol/L (10-20); BUN (Urea Nitrogen) 9 mg/dL (7.0-18.7); Calc. Creatinine Clearance 126 mL/min (70-130); Calcium 8.5 mg/dL (7.8-10.44); Carbon Dioxide 21 mmol/L (22-29); Chloride 107 mmol/L (98-107); Estimated GFR-MDRD Greater than 90
[2017-03-25] MEDS ORDERED: hydrOXYzine 10 MG TAB PO SCH ×2 (09:00)
--- NOTE | 2017-03-25 09:36 | PDOC.FM ---
- Subjective Subjective: Overnight, patient had apparent tonic clonic seizure x2, lasting for 10 min, terminated with ativan. Described as a localized siezure involving right arm. She had a postictal govea. She had no memory of event and was not arousable until about 0600 today. - Objective MAR Reviewed: Yes Vital Signs & Weight: Vital Signs (12 hours) Temp Pulse Resp BP BP Pulse Ox 03/25/17 09:11 97 F L 71 18 103/68 99 03/25/17 04:00 97.3 F L 75 16 103/68 99 03/25/17 00:00 97.3 F L 75 16 103/68 99 Weight Admit Weight 59.421 kg Weight 63.8 kg Most Recent Monitor Data Heart Rate from ECG 62 NIBP 118/64 NIBP BP-Mean 81 Respiration from ECG 17 SpO2 98 I&O: 03/24/17 03/25/17 03/26/17 06:59 06:59 06:59 Intake Total 2374 1064 Output Total 7206 5299 [id number] -9903 Result Diagrams: 03/22/17 05:03 03/25/17 08:23 <Arnel Salazar M - Last Filed: 03/25/17 11:33> - Objective Vital Signs & Weight: Vital Signs (12 hours) Temp Pulse Pulse Resp BP Pulse Ox Pulse Ox 03/25/17 16:00 98.4 F 62 18 121/81 98 03/25/17 14:53 84 98 03/25/17 13:00 97.6 F 66 18 110/71 98 03/25/17 09:11 97 F L 71 18 103/68 99 03/25/17 08:00 97 F L 71 18 Weight Admit Weight 59.421 kg Weight 63.8 kg Most Recent Monitor Data Heart Rate from ECG 62 NIBP 118/64 NIBP BP-Mean 81 Respiration from ECG 17 SpO2 98 I&O: 03/24/17 03/25/17 03/26/17 06:59 06:59 06:59 Intake Total 2379 1062 3290 Output Total 3060 3529 0205 [employer] -8881 540 Result Diagrams: 03/22/17 05:03 03/25/17 08:23 <Leydi Baxter Ruthy - Last Filed: 03/25/17 19:20> Phys Exam - Physical Examination Sleepy, difficult to arouse, can follow command, unable to answer questions HEENT: moist MMs Neck: no nodes, supple Respiratory: no wheezing, no rales, no rhonchi, clear to auscultation bilateral Cardiovascular: no significant murmur, no rub Gastrointestinal: soft, non-tender, no distention, positive bowel sounds Musculoskeletal: no edema Neurological: moves all 4 limbs Lymphatic: no nodes Deviation from normal: Sleepy, blunted affect Deviation from normal: Area of hyperpigmentation scattered on skin, secondary to picking <Arnel Salazar M - Last Filed: 03/25/17 11:33> Dx/Plan (1) New onset seizure Code(s): R56.9 - UNSPECIFIED CONVULSIONS Status: Acute Plan: 03/23: Patient remains intubated for airway protection. Per pulm note, she may be extubated today. She is doing well on vent, can become agitated and had propofol yesterday for agitation. Neurology advised that she be started on keppra 500 mg BID. There has no been any witnessed seizure since admission. 03/24: EEG was obtained. Read has not been interpreted yet. At this point, neurology recommend that patient can follow up in outpatient clinic in 6 week and to start keppra 500 BID. From neurology standpoint, patient can be discharge from their service to home whenever she is medically cleared. Their diagnosis is new onset seizure. 03/25: Will reconsult with neruology due to patient's repeat seizure like activity. Patient may benefit from video monitoring. (2) Systemic lupus erythematosus-related syndrome Code(s): M32.9 - SYSTEMIC LUPUS ERYTHEMATOSUS, UNSPECIFIED Status: Chronic Plan: 03/23: This may play a part in her symptom. However, MRI, brain CT did not suggest cerebritis, stroke or other abnormalities that could have led to her current state or her sudden declined prior to admission. Will continue to await phospholipid lab, but current rheumatological labs are benign at this time. Will restart hydroxychloroquine when she can tolerate PO. 03/24: Double stranded DNA and positive DUC does suggest patient has lupus, phospholipid lab still pending. However, lab does not confirm or deny the cause of patient's AMS. Working diagnosis of new onset seizure at this time. 03/25: Lab at this time would not suggest lupus flare, besides lab confirming SLE, other rheumatology lab have been negative. (3) Normocytic anemia Code(s): D64.9 - ANEMIA, UNSPECIFIED Status: Acute Plan: 03/23: Normocytic anemia noted on lab. Plan to inform patient nearer to discharge time for follow up as outpatient. Mild anemia. 03/24: Will continue to monitor while in hospital and advise patient to followup as outpatient. 03/25: Will reevaluate if patient become symptomatic. (4) History of pulmonary embolism Code(s): Z86.711 - PERSONAL HISTORY OF PULMONARY EMBOLISM Status: Acute Plan: 03/23: CTA did not find any PE. O2 saturation has been good during this visit. 03/24: No evidence of PE. No further work up at this time, pending changes in clinical picture. (5) Anxiety and depression Code(s): F41.8 - OTHER SPECIFIED ANXIETY DISORDERS Status: Acute Plan: 03/23: Will restart patient on her venlafaxine once she can tolerate PO. 03/24: Will continue with current plan. 03/25: Continue current plan. (6) Prolonged Q-T interval on ECG Code(s): R94.31 - ABNORMAL ELECTROCARDIOGRAM [ECG] [EKG] Status: Acute Plan: 03/24: Patient had mildly prolong qtc interval on initial EKG, has resolved with second ekg . Consider getting new EKG if starting patient on new medication that could prolong qtc. <Arnel Salazar - Last Filed: 03/25/17 11:33> Attending Addendum - Attending Addendum I personally evaluated the patient and discussed the management with Dr. Salazar at 0950am I agree with the History, Examination, Assessment and Plan documented above with any addition or exceptions noted below. 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 If patient continues to have seizures will need to consider transfer for continuous video EEG monitoring. Somnolence-most likely a result of ativan doses but father concerned that gabapentin dose increase a few weeks ago may have been contributing. Will hold the gabapentin for now. SLE- no obvious sign of lupus cerebritis but she has completed 3 day course of methyprednisilone. <Leydi Baxter - Last Filed: 03/25/17 19:20>
[2017-03-25] MEDS: Carvedilol 3.125 MG TAB PO SCH ×2 (10:25→20:40)
[2017-03-25] MEDS: Famotidine 20 MG TAB PO SCH ×2 (10:25→20:39)
[2017-03-25] MEDS: Gabapentin 300 MG CAP PO SCH (10:26)
[2017-03-25] MEDS: Venlafaxine HCl XR 75 MG CAP PO SCH (10:27)
[2017-03-25] MEDS: Montelukast Sodium 10 mg Tablet PO SCH ×2 (10:28→20:37)
[2017-03-25] MEDS: levETIRAcetam 500 MG TAB PO SCH ×2 (10:29→20:37)
[2017-03-25] MEDS: hydrOXYzine 10 MG TAB PO SCH ×2 (10:30→12:22)
[2017-03-25] MEDS: Enoxaparin Sodium 40 MG/0.4 ML SYRINGE SC SCH (10:38)
[2017-03-25] MEDS: Hydroxychloroquine Sulfate 200 MG TAB PO SCH (10:38)
[2017-03-25] MEDS: Calcium Carbonate + Vit D 1 TAB PO SCH (10:38)
[2017-03-25] MEDS ORDERED: Acetaminophen 325 MG TAB PO PRN (14:38)
[2017-03-25] MEDS ORDERED: levETIRAcetam In NaCl (Iso-Os) 1,500 MG in Premix Bag 1 BAG IVPB SCH ×2 (17:30)
[2017-03-25] MEDS: hydrOXYzine 25 MG TAB PO SCH (20:39)
[2017-03-25] MEDS: Prazosin HCl 1 MG CAP PO SCH (20:46)
--- NOTE | 2017-03-26 01:06 | CON ---
DATE OF CONSULTATION: 03/25/2017 REQUESTING PHYSICIAN: [facility]. REASON FOR CONSULTATION: History of systemic lupus erythematosus and new-onset seizures. HISTORY OF PRESENT ILLNESS: This is a 26-year-old female with past medical history of systemic lupus erythematosus diagnosed in 2015 after having pulmonary embolism. The patient's other manifest ations included arthritis, nephritis, hair loss, oral ulcerations and constitutional symptoms. She h as done well since her diagnosis has been managed with Plaquenil. Her nephritis also resolved quickl y after diagnosis and did not require further immunosuppressive treatment such as CellCept or Cytoxan . She was admitted to the hospital after having slurred speech and then collapsing 4 days ago. Her family did witness her to have grand mal seizures while in the emergency room. She was intubated for airway protection. At this time, she denies any recent problems with joint pain, fevers, fatigue, o ral ulcerations, alopecia, pleurisy or paresthesias. She has had problems with itching and has been seeing Dr. Canales for this. She has been taking gabapentin, Atarax, Singulair and Zantac for her itchi ng symptoms. Her mother notes her to be started on Effexor for her PTSD in the past few months and p ut on prazosin in the past month. 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 PAST SURGICAL HISTORY: . ALLERGIES: PENICILLIN. FAMILY HISTORY: Unknown. The patient is adopted. SOCIAL HISTORY: The patient does smoke. She denies any alcohol or drug use. She lives with her boy friend and 3-year-old son. REVIEW OF SYSTEMS: A 12-point review of systems is conducted and is negative except as per above. CURRENT MEDICATIONS: Coreg, vitamin D, Lovenox subcutaneous, Pepcid, Plaquenil, Atarax, Keppra, Sing ulair, prazosin, and Effexor. Gabapentin has been discontinued as she did have a witnessed seizure a fter taking this medication. PHYSICAL EXAMINATION: GENERAL: She is alert and oriented x3 in no acute distress. VITAL SIGNS: She is afebrile. Blood pressure 103/68, heart rate 84, oxygen saturation 98% on room a ir. HEENT: No oral ulcers. Adequate salivary pooling, no malar rash. NECK: Supple, no JVD or lymphadenopathy. CHEST: Lungs are clear to auscultation bilaterally. HEART: Regular rate and rhythm. ABDOMEN: Soft, nontender to palpation. EXTREMITIES: No cyanosis, clubbing or edema. MUSCULOSKELETAL: No synovitis or joint deformities. SKIN: No rashes noted. LABS: Hemoglobin is 11.8 with normal MCV. White blood cell count is normal. Platelets are normal. ESR is 5. CMP is normal. UA shows no protein or cells. UDS is negative. DUC is positive. Double -stranded DNA is very slightly positive. C3 and C4 are normal. IMAGING: MRI of the brain is unremarkable. CT angio of the chest shows no pulmonary embolism. ASSESSMENT AND PLAN: This is a 26-year-old female with history of systemic lupus erythematosus here with new onset seizures. I feel the most likely culprit of her seizures to be her medications and perhaps a combination of her medications. Discussed trying to minimize these. Her lupus does no t appear to be active at this time. I do not feel that [employer] or neuropsychiatric lupus is likely. I d o not recommend increasing her immunosuppressive medications at this time. We will see her upon disc harge from the hospital.
[2017-03-26] MEDS: Sodium Chloride 0.9% 1,000 ML IV SCH ×2 (03:52→14:30)
[2017-03-26] MEDS: Enoxaparin Sodium 40 MG/0.4 ML SYRINGE SC SCH (08:04)
[2017-03-26] MEDS: Montelukast Sodium 10 mg Tablet PO SCH (08:04)
[2017-03-26] MEDS: levETIRAcetam 500 MG TAB PO SCH (08:05)
[2017-03-26] MEDS: Hydroxychloroquine Sulfate 200 MG TAB PO SCH (08:05)
[2017-03-26] MEDS: Famotidine 20 MG TAB PO SCH (08:06)
[2017-03-26] MEDS: Venlafaxine HCl XR 75 MG CAP PO SCH (08:07)
[2017-03-26] MEDS: Carvedilol 3.125 MG TAB PO SCH (08:09)
[2017-03-26] MEDS: hydrOXYzine 10 MG TAB PO SCH ×2 (08:09→11:30)
[2017-03-26] MEDS: Calcium Carbonate + Vit D 1 TAB PO SCH (08:09)
[2017-03-26 08:47] VITALS: BP 96/65; TEMP 97.5
--- NOTE | 2017-03-26 10:12 | PDOC.FM ---
- Subjective Subjective: Patient was reportedly eating, more awake and alert last night. Father of patient denies any seizure, headache, fever, chills but did endorse patient had impaired short term memory. - Objective MAR Reviewed: Yes Vital Signs & Weight: Vital Signs (12 hours) Temp Pulse Resp BP BP Pulse Ox 03/26/17 08:45 97.5 F L 75 18 96/65 75 L 03/26/17 08:00 97.5 F L 75 18 98 03/26/17 04:00 98.1 F 76 20 117/72 95 03/26/17 00:00 98.4 F 75 20 122/82 97 Weight Admit Weight 59.421 kg Weight 63.8 kg Most Recent Monitor Data Heart Rate from ECG 62 NIBP 118/64 NIBP BP-Mean 81 Respiration from ECG 17 SpO2 98 I&O: 03/25/17 03/26/17 03/27/17 06:59 06:59 06:59 Intake Total 1064 1840 240 Output Total 3612 3050 Fixes 4 Kids -6445 -5919 240 Result Diagrams: 03/22/17 05:03 03/25/17 08:23 <Arnel Salazar M - Last Filed: 03/26/17 10:09> - Objective Vital Signs & Weight: Vital Signs (12 hours) Temp Pulse Resp BP Pulse Ox 03/26/17 08:45 97.5 F L 75 18 96/65 75 L 03/26/17 08:00 97.5 F L 75 18 98 Weight Admit Weight 59.421 kg Weight 63.8 kg Most Recent Monitor Data Heart Rate from ECG 62 NIBP 118/64 NIBP BP-Mean 81 Respiration from ECG 17 SpO2 98 I&O: 03/25/17 03/26/17 03/27/17 06:59 06:59 06:59 Intake Total 1064 1840 480 Output Total 3615 3050 Fixes 4 Kids -2558 -1219 480 Result Diagrams: 03/22/17 05:03 03/25/17 08:23 <Leydi Baxter - Last Filed: 03/26/17 19:24> Phys Exam - Physical Examination Constitutional: NAD HEENT: moist MMs Neck: no nodes, supple Respiratory: no wheezing, no rales, no rhonchi, clear to auscultation bilateral Cardiovascular: RRR, no significant murmur, no rub Gastrointestinal: soft, non-tender, no distention, positive bowel sounds Musculoskeletal: no edema Neurological: moves all 4 limbs Sluggish movement, not fully conversational but can follow command Lymphatic: no nodes Deviation from normal: Poor eye contact Deviation from normal: Chronic hyperpigmentation from skin picking <Arnel Salazar Ruben - Last Filed: 03/26/17 10:09> Dx/Plan (1) New onset seizure Code(s): R56.9 - UNSPECIFIED CONVULSIONS Status: Acute Plan: Neurology recommend increasing keppra to 750 bid. They do not think gabapentin is responsible for seizure, but will discontinue at this time as it was not started for seizure, was for itching instead. If patient works well with physical therapy, may be discharged today as patient is cleared from neurological standpoint, with follow up in 6 week as outpatient with Neuro. (2) Systemic lupus erythematosus-related syndrome Code(s): M32.9 - SYSTEMIC LUPUS ERYTHEMATOSUS, UNSPECIFIED Status: Chronic Plan: Dr. Lowry, rheumatology, agrees this is unlikely lupus flare. Appreciate her recommendation. Will continue with current SLE medication. (3) Normocytic anemia Code(s): D64.9 - ANEMIA, UNSPECIFIED Status: Acute Plan: Known stable issue. With reevaluate if symptomatic. (4) History of pulmonary embolism Code(s): Z86.711 - PERSONAL HISTORY OF PULMONARY EMBOLISM Status: Acute Plan: Chronic issue in past, was not found on this visit. (5) Anxiety and depression Code(s): F41.8 - OTHER SPECIFIED ANXIETY DISORDERS Status: Acute Plan: Continue home medication. (6) Prolonged Q-T interval on ECG Code(s): R94.31 - ABNORMAL ELECTROCARDIOGRAM [ECG] [EKG] Status: Acute Plan: Had resolved. <Arnel Salazar M - Last Filed: 03/26/17 10:09> Attending Addendum - Attending Addendum I personally evaluated the patient and discussed the management with Dr. Salazar 0945 am. I agree with the History, Examination, Assessment and Plan documented above with any addition or exceptions noted below. New onset seizures- no seizure like activity in 36 hours with increased dose of Keppra. Stable for d/c home if able to feed herself, ambulate,etc. Patient to go to her parents house for a few days while recovering. <Leydi Baxter - Last Filed: 03/26/17 19:24>
--- NOTE | 2017-03-30 06:08 | DIS-2 ---
DATE OF ADMISSION: 03/22/2017 DATE OF DISCHARGE: 03/26/2017 RESIDENT: Dr. Arnel Salazar. ADMITTING ATTENDING: Dr. Neel Crooks. DISCHARGE ATTENDING: Dr. Leydi Baxter. CONSULTS: 1. Dr. Austin Hughes, Pulmonology. 2. Dr. Kika Arauz, Neurology. PROCEDURES: 1. Brain CT. Impression: No acute intracranial finding, prosthetic left globe, globus pallidus bas al ganglia calcification. 2. Chest x-ray on 03/21/2017: Impression: Status post intubation with endotracheal tube and nasoga stric tube placement, minimal pulmonary density in the left lung. The rest of the lung is clear. 3. Chest CTA. Impression: CT angiogram of the chest is performed in the axial plane, oblique and c oronal. Finding: No pulmonary embolism, no acute thoracic abnormalities. Support equipment with en teric tube tip within the gastric body lumen and endotracheal tube tip in the mid thoracic trachea. 4. Brain MRI. Impression: No evidence of infarct, hemorrhage, mass, midline shift or abnormal extr aaxial fluid collection is found. Ventricular size normal and basilar cisterns are pattern. No abno rmal enhancement seen, no restricted diffusion noted. Paranasal sinuses and mastoid air cells are we ll aerated and normal exam. PRIMARY DIAGNOSES: 1. New onset seizures. 2. Hypokalemia. 3. Normocytic anemia. 4. Anxiety. 5. Systemic lupus. 6. History of pulmonary embolism. 7. Prolonged QT interval on ECG. DISCHARGE MEDICATIONS: 1. Famotidine 20 mg p.o. b.i.d. 2. Singulair 10 mg p.o. b.i.d. 3. Venlafaxine 75 mg p.o. daily. 4. Prazosin 2 mg p.o. at bedtime. 5. Vitamin D3 of 2000 units p.o. b.i.d. 6. Keppra 700 mg p.o. b.i.d. HISTORY OF PRESENT ILLNESS AND HOSPITAL COURSE: This is a 26-year-old adopted female who presents to the emergency department after being found unresponsive on the night of 03/22/2017 at approximately 2140 hours. Her boyfriend states that she woke up to put her child to sleep when he found her collap sed. He said that she had slurred speech and before becoming unresponsive, he called 911 and he then started chest compressions until EMS arrived, they found a pulse on arrival and per ER record, she b ecame more alert and started to withdraw from pain at that time. When she was taken to the emergency department, she was seen by Dr. Sherwood and was found to be seizing at that time. She was given At jose martin and Dilantin and intubated. Per her boyfriend and mother, she was in her normal state of health prior to this, however she does have a history of lupus, PTSD, and anxiety and that her mother said that her psychiatric problem seemed to have worsened recently. She has a total of approximately 4 se izures in the ER. She was then transferred to the ICU unit because of intubation. She was noted to be lethargic for the next 2 days. She could follow simple commands at time after being extubated the day after admission; however, she only gave 1-2 word response, move her limbs very weakly, but symme trically, and spoke 1-2 words at most with spontaneous eye opening at times. Neurology was consulted , where they did an EEG on her, at that time they suggested that it is most likely new onset seizure as the rest of her labs for lupus flare came back negative as was her MRI and CT of the head for any gross abnormalities and/or symptoms of cerebritis. During the next 2 days, she spent it on the medic al floor; however, she was noted to have 2 seizure-like activity witnessed only by her parents at hanny t time. Neurology was reconsulted, where they suggested going up on her Keppra dosing to a total of 750 b.i.d. While not formally consulted, her piano maker was made aware of her current situation and suggested that perhaps the gabapentin might be the cause of her sleepiness. While the gabapentin has been taken long-term prior to this and not causing any trouble, it was felt that the gabapentin being prescribed only for itchiness could be discontinued to see if it make any difference. Her immu nologist, Dr. Anderson Gardiner was also made aware of his situation do not formally consulted. He states that she does have a difficult social situation with her fiance with an on and off relationship with him. At the time of this report, the EEG read has not been returned yet; however, Dr. Arauz did say t hat he felt that she was stable from neurological standpoint and that she was to follow up with him i n his office in 6 weeks. While here, she was noted incidentally to have a mildly prolonged QT interv al. It was resolved without any issue with a second EKG and she never complained of chest pain while here. As for her chronic condition of anxiety and depression, she was treated with her home medicat ion, venlafaxine that is for history of pulmonary embolism. A CTA was done to rule out this as a cau se of her altered mental status, but it was normal with no evidence of PE. She was noted to have a n ormocytic anemia, but was always asymptomatic and was emphasized to follow up with her primary care edie thompson for this. For her SLE, she was continued on her home lupus medications. She did have hypok alemia at beginning of her stay down to 3.4, but it was corrected with potassium. On day of discharge, she was awake, walking, and tolerating p.o. intake. The family said that she wa s going to go back and stay with them for a while, so that she would have a good support network. DISPOSITION: Stable. DISCHARGE INSTRUCTIONS: 1. Location: To home. 2. Diet: Full as tolerated. 3. Activity: As tolerated. 4. Followup: Follow up with Dr. Arauz within 6 weeks and follow up with primary care physician, Dr. Lowry within 1-2 weeks.
== END 2017-03-26 15:20 | disposition home or self-care (01) | DRG 101 ==
LOC: ERS 22:23 → CCU 03-22 00:29 → T4-B 03-24 13:23
PROVIDERS: ADMIT Family Medicine; ATTEND Family Medicine
PROC: 5A1945Z Respiratory Ventilation, 24-96 Consecutive Hours (ICD-10-PCS; principal; 2017-03-21)
PROC: 0BH17EZ Insertion of Endotracheal Airway into Trachea, Via Natural or Artificial Opening (ICD-10-PCS; 2017-03-21)
DX: G40.409 Other generalized epilepsy and epileptic syndromes, not intractable, without status epilepticus (principal); M32.19 Other organ or system involvement in systemic lupus erythematosus; E87.6 Hypokalemia; D64.9 Anemia, unspecified; F43.10 Post-traumatic stress disorder, unspecified; F41.9 Anxiety disorder, unspecified; Z86.711 Personal history of pulmonary embolism; I45.81 Long QT syndrome; F32.9 Major depressive disorder, single episode, unspecified; Q11.2 Microphthalmos; F17.210 Nicotine dependence, cigarettes, uncomplicated
CPT/HCPCS: 31500; 36415; 36416; 51702; 70450; 70553; 71010; 71275; 80048; 80053; 80306; 80307; 81003; 82550; 82553; 82805; 83605; 83690; 83735; 84146; 84443; 84484; 84703; 85025; 85240; 85250; 85598; 85610; 85613; 85652; 85730; 86038; 86146; 86147; 86160; 86225; 87040; 87086; 93005; 93010; 94003; 95816; 95819; 96365; 96375; 96376; 99292; A4216; A9579; G8978-GP-CL; G8979-GP-CJ; J1650; J1720; J1953; J2060; J2270; J2704; J2930; J3010; J3410; J7050; Q2009; S0028

== ENCOUNTER 2017-08-30 14:50 | Emergency (ER) | payer OTHER, SELFPAY ==
[2017-08-30 15:18] LABS: #Eosinphils 0.1 thou/uL (0.0-0.7); #Lymphocytes 1.3 thou/uL (1.20-3.40); #Monocytes 0.4 thou/uL (0.11-0.59); %Basophils 0.9 % (0.0-1.0); %Eosinophils 1.5 % (0.0-10.0); %Neutrophils 69.7 % (42.0-75.0); Hemoglobin 13.4 g/dL (12.0-16.0); Mean Corpuscular HGB CONC 32.2 g/dL (32.0-36.0); Mean Corpuscular Hemoglobin 25.5 pg (27.0-31.0); Mean Corpuscular Volume 79.3 fl (81.0-99.0); Mean Platelet Volume 7.6 fL (7.4-10.4); Platelet Count 269 thou/uL (130-400); RBC Distribution Width 14.5 % (11.5-14.5); Red Blood Cell (RBC) Count 5.26 mill/uL (4.20-5.40); White Blood Cell (WBC) Count 5.8 thou/uL (4.8-10.8)
[2017-08-30 15:19] LABS: Bilirubin Negative (Negative); Blood, Urine Negative (Negative); Clarity CLEAR (Clear); Glucose, Urine (Dipstick) Negative (Negative); Leukocyte Negative (Negative); Nitrite Negative (Negative); Protein, Urine (Dipstick) Trace mg/dL (Neg-Trace); Specific Gravity, Urine 1.027 (1.002-1.036)
[2017-08-30 15:24] LABS: Pregnancy Test - Urine (BHCG) Negative (Negative); Pregu Control Background? CLEAR/WHITE (CLR/WHITE); Pregu Control Bar Appear? YES (CONTROL BAR); Specific Gravity 1.027 (1.002-1.036)
[2017-08-30 15:29] LABS: Amphetamine Not Detected (NotDetected); Barbiturates Screen Not Detected (NotDetected); Benzodiazepine Screen Not Detected (NotDetected); Cocaine Metabolite Screen Not Detected (NotDetected); Medtox Control Line Valid? VALID (VALID); Medtox Reader # READER 1; Methadone Not Detected (NotDetected); Methamphetamine Not Detected (NotDetected); Opiate Screen Not Detected (NotDetected); Oxycodone Screen Not Detected (NotDetected); Phencyclidine (PCP) Not Detected (NotDetected); THC/Cannabinoid Screen Not Detected (NotDetected); Tricyclic Screen Not Detected (NotDetected)
[2017-08-30 15:45] LABS: Acetaminophen Less than 6.0 mcg/mL (10.0-30.0); Alcohol Less than 10 mg/dL (Less than 10); Salicylate Less than 8.0 mg/dL (15.0-30.0)
[2017-08-30 15:46] LABS: ALT (SGPT) 16 U/L (8-55); AST (SGOT) 25 U/L (5-34); Albumin 5.1 g/dL (3.5-5.0); Alkaline Phosphatase 54 U/L (40-150); Anion Gap 15 mmol/L (10-20); BUN (Urea Nitrogen) 13 mg/dL (7.0-18.7); Bilirubin, Total 0.7 mg/dL (0.2-1.2); Calc. Creatinine Clearance 0 mL/min (70-130); Calcium 10.5 mg/dL (7.8-10.44); Carbon Dioxide 22 mmol/L (22-29); Chloride 106 mmol/L (98-107); Estimated GFR-MDRD 73; Globulin 3.8 g/dL (2.4-3.5); Glucose 90 mg/dL (70-105); Potassium 3.9 mmol/L (3.5-5.1); Protein, Total 8.9 g/dL (6.0-8.3); Sodium 139 mmol/L (136-145)
[2017-08-30] MEDS ORDERED: Lorazepam 2 MG/ML VIAL ONE ×3 (16:05→16:24)
[2017-08-30] MEDS ORDERED: Acetaminophen 500 MG TAB ONE (21:49)
== END 2017-08-30 22:25 | disposition home or self-care (01) ==
LOC: ERS 14:50
DX: G40.909 Epilepsy, unspecified, not intractable, without status epilepticus (principal); Z91.14 Patient's other noncompliance with medication regimen; F41.9 Anxiety disorder, unspecified; F43.10 Post-traumatic stress disorder, unspecified; F17.200 Nicotine dependence, unspecified, uncomplicated; Z79.899 Other long term (current) drug therapy
CPT/HCPCS: 36415; 36416; 51701; 80053; 80177; 80306; 80307; 81003; 81025; 84146; 85025; 93005; 96361; 96365; 96375; A4353; J1953; J2060; J7050